=== PATIENT | male | born 1990 | race American Indian/Alaskan Native ===

== ENCOUNTER 2017-06-08 10:17 | Emergency (ER) | payer SELFPAY ==
[2017-06-08 10:52] LABS: Basophils % (Auto) 0.4 % (0.0-1.8); Eosinophils % (Auto) 3.2 % (0.0-4.3); Hematocrit 42.2 % (35.5-45.6); Hemoglobin 13.8 gm/dl (11.8-15.2); Mean Corpuscular HGB Conc 33 % (32-34); Mean Corpuscular Hemoglobin 28 pg (28-32); Mean Corpuscular Volume 86 fl (84-94); Platelet Count 271 K/mm3 (140-440); Red Blood Count 4.93 M/mm3 (3.65-5.03); Red Cell Distribution Width 14.9 % (13.2-15.2); White Blood Count 5.3 K/mm3 (4.5-11.0)
[2017-06-08 11:14] LABS: Anion Gap 18 mmol/L; BUN/Creatinine Ratio 17.77; Blood Urea Nitrogen 16 mg/dL (9-20); Calcium 9.6 mg/dL (8.4-10.2); Carbon Dioxide 25 mmol/L (22-30); Chloride 100.6 mmol/L (98-107); Glucose 98 mg/dL (75-100); Potassium 4.5 mmol/L (3.6-5.0); Sodium 139 mmol/L (137-145)
[2017-06-08 13:12] LABS: Urine Drugs of Abuse Note Disclamer
[2017-06-08 13:31] LABS: Bacteria,Urine 1+ /HPF (Negative); Bilirubin,Urine NEG (Negative); Blood,Urine NEG (Negative); Ketones,Urine TR mg/dL (Negative); Leukocyte Esterase,Urine NEG (Negative); Mucus,Urine 3+ /HPF; Nitrite,Urine NEG (Negative); RBC,Urine < 1.0 /HPF (0.0-6.0); Urobilinogen,Urine < 2.0 mg/dL (<2.0)
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
[2017-06-09] MEDS ORDERED: GEODON IM ONE ×2 (10:32)
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
[2017-06-09] MEDS ORDERED: RisperDAL PO SCH (22:00)
[2017-06-10 00:56] VITALS: BP 119/77
== END 2017-06-10 00:55 ==
LOC: ED 10:17
DX: F22 Delusional disorders (principal); F29 Unspecified psychosis not due to a substance or known physiological condition; F20.9 Schizophrenia, unspecified
CPT/HCPCS: 36415; 80048; 80307; 81001; 85025; 96372; 99285; G0480; J3486; 80320

== ENCOUNTER 2018-03-31 19:26 | Emergency (ER) | payer MEDICAID ==
[2018-03-31 20:08] LABS: Basophils % (Auto) 0.6 % (0.0-1.8); Eosinophils # (Auto) 0.3 K/mm3 (0.0-0.4); Eosinophils % (Auto) 3.8 % (0.0-4.3); Hematocrit 40.3 % (35.5-45.6); Hemoglobin 13.6 gm/dl (11.8-15.2); Lymphocytes # (Auto) 2.7 K/mm3 (1.2-5.4); Lymphocytes % (Auto) 34.4 % (13.4-35.0); Mean Corpuscular HGB Conc 34 % (32-34); Mean Corpuscular Hemoglobin 30 pg (28-32); Mean Corpuscular Volume 90 fl (84-94); Monocytes # (Auto) 0.4 K/mm3 (0.0-0.8); Monocytes % (Auto) 4.7 % (0.0-7.3); Platelet Count 231 K/mm3 (140-440); Red Cell Distribution Width 13.5 % (13.2-15.2)
[2018-03-31 20:20] LABS: Bilirubin,Urine NEG (Negative); Blood,Urine NEG (Negative); Calcium Oxalate Crystals,Urine 1+; Color,Urine Yellow (Yellow); Mucus,Urine 1+ /HPF; Protein,Urine <15 mg/dL mg/dL (Negative); Urobilinogen,Urine < 2.0 mg/dL (<2.0)
[2018-03-31 20:22] LABS: Amphetamine Screen,Urine PRESUMPTIVE NEGATIVE; Benzodiazepines Screen,Urine PRESUMPTIVE NEGATIVE; Cannabinoid Screen,Urine PRESUMPTIVE NEGATIVE; Cocaine Screen,Urine PRESUMPTIVE NEGATIVE; Methadone Screen,Urine PRESUMPTIVE NEGATIVE; Opiate Screen,Urine PRESUMPTIVE NEGATIVE
[2018-03-31 20:35] LABS: BUN/Creatinine Ratio 16; Blood Urea Nitrogen 16 mg/dL (9-20); Calcium 9.5 mg/dL (8.4-10.2); Hemolysis Index 11
--- NOTE | 2018-04-01 07:19 | Emergency Department Report ---
ED Psych HPI - General Chief Complaint: Psych Stated Complaint: MH Time Seen by Provider: 04/01/18 06:18 Source: patient Mode of arrival: Ambulatory - History of Present Illness Initial Comments: Patient says that he is here for his Viagra shot. He gets them once a month from Dr. PETERSEN who is over at [facility]. He also would like a refill for Benadryl to help him sleep at night. Denies SI, HI, AVH. Has been compliant With his home medications. Denies illicit drug use or alcohol. - Related Data Home Medications Medication Instructions Recorded Confirmed Last Taken OLANzapine [ZyPREXA] 15 mg PO QDAY 10/11/13 06/08/17 01/16/14 risperiDONE [Risperdal] 2 mg PO HS 01/17/14 06/08/17 Unknown Previous Rx's Medication Instructions Recorded Last Taken Type diphenhydrAMINE [Benadryl CAP] 25 mg PO Q8HR PRN #10 capsule 04/01/18 Unknown Rx Allergies Allergy/AdvReac Type Severity Reaction Status Date / Time No Known Allergies Allergy Verified 06/08/17 10:30 ED Review of Systems ROS: Stated complaint: MH Other details as noted in HPI Comment: All other systems reviewed and negative ED Past Medical Hx - Past Medical History Hx Hypertension: Yes Hx Psychiatric Treatment: Yes (Sees Dr. Blanco) Additional medical history: Depression, schizophrenia - Surgical History Past Surgical History?: No - Social History Smoking Status: Never Smoker Substance Use Type: None - Medications Home Medications: Home Medications Medication Instructions Recorded Confirmed Last Taken Type OLANzapine [ZyPREXA] 15 mg PO QDAY 10/11/13 06/08/17 01/16/14 History risperiDONE [Risperdal] 2 mg PO HS 01/17/14 06/08/17 Unknown History diphenhydrAMINE [Benadryl CAP] 25 mg PO Q8HR PRN #10 capsule 04/01/18 Unknown Rx ED Physical Exam - General Limitations: No Limitations General appearance: alert, in no apparent distress - Head Head exam: Present: atraumatic, normocephalic - Eye Eye exam: Present: normal appearance - ENT ENT exam: Present: mucous membranes moist - Neck Neck exam: Present: normal inspection - Respiratory Respiratory exam: Present: normal lung sounds bilaterally. Absent: respiratory distress - Cardiovascular Cardiovascular Exam: Present: regular rate, normal rhythm. Absent: systolic murmur, diastolic murmur, rubs, gallop - GI/Abdominal GI/Abdominal exam: Present: soft. Absent: tenderness - Rectal Rectal exam: Present: deferred - Extremities Exam Extremities exam: Present: normal inspection - Back Exam Back exam: Present: normal inspection - Neurological Exam Neurological exam: Present: alert, oriented X3 - Psychiatric Psychiatric exam: Present: normal affect, normal mood - Skin Skin exam: Present: warm, dry, intact, normal color. Absent: rash ED Course Vital Signs 03/31/18 03/31/18 04/01/18 19:27 19:32 03:33 Temperature 98.8 F 98.8 F 97.8 F Pulse Rate 79 74 55 L Respiratory 18 18 18 Rate Blood Pressure 113/72 113/72 Blood Pressure 121/81 [Left] O2 Sat by Pulse 96 97 Oximetry 04/01/18 03:42 Temperature Pulse Rate Respiratory 18 Rate Blood Pressure Blood Pressure [Left] O2 Sat by Pulse 98 Oximetry ED Medical Decision Making - Lab Data Result diagrams: 03/31/18 19:53 03/31/18 19:53 - Medical Decision Making 27-year-old male with past medical history of schizophrenia on olanzapine/ Risperdal and presents for medication refill. Patient says that he would like a prescription for Benadryl to help him sleep and that he wants his monthly injection of Viagra. Patient says that he is on it for his blood pressure. He says that he gets an injection from a Dr. Casiano over at [facility]. His last injection with a month ago. Patient clinically appears to be odd but he is alert and oriented and competent. He is denying any suicidal or homicidal ideation. Patient as well. He does not want to stay for a psychiatric evaluation. He is not meeting emergent psychiatric criteria for evaluation. Patient will be given prescription for Benadryl to use at home. I told the patient that I do not do Viagra injections and that he should follow-up with the doctor that gave it to him before. He was okay with this. Patient has been agreeable while in the ER. I discussed with the nurse and tech to have observed him while he's been in the ER. They said that he has been very agreeable and appears to be alert and oriented. Has not made any violent threats either towards himself or others. They agree that he is competent as well. Patient is cleared for discharge. - Differential Diagnosis psychosis, drug intoxication, alcohol intoxication, schizophrenia Critical care attestation.: If time is entered above; I have spent that time in minutes in the direct care of this critically ill patient, excluding procedure time. ED Disposition Clinical Impression: Schizophrenia Disposition: DC-01 TO HOME OR SELFCARE Is pt being admited?: No Condition: Stable Instructions: Schizophrenia (ED) Additional Instructions: Please follow up with Dr. Casiano and your psychiatrist for further refills of your medications. Prescriptions: diphenhydrAMINE [Benadryl CAP] 25 mg PO Q8HR PRN #10 capsule PRN Reason: Insomnia Referrals: PRIMARY CARE, [Primary Care Provider] - 3-5 Days
[2018-04-01 08:49] VITALS: BP 126/77
== END 2018-04-01 08:50 | disposition home or self-care (01) ==
LOC: ED 19:26
DX: F20.9 Schizophrenia, unspecified (principal); F32.9 Major depressive disorder, single episode, unspecified; I10 Essential (primary) hypertension
CPT/HCPCS: 36415; 80048; 80307; 81001; 85025; 99283; G0480; 80320

== ENCOUNTER 2020-10-07 19:41 | Emergency (ER) | payer MEDICAID ==
[2020-10-07 22:07] LABS: Basophils # (Auto) 0.1 K/mm3 (0.0-0.1); Basophils % (Auto) 0.6 % (0.0-1.8); Eosinophils # (Auto) 0.2 K/mm3 (0.0-0.4); Eosinophils % (Auto) 2.5 % (0.0-4.3); Hematocrit 28.6 % (35.5-45.6); Hemoglobin 9.9 gm/dl (11.8-15.2); Lymphocytes # (Auto) 1.9 K/mm3 (1.2-5.4); Lymphocytes % (Auto) 21.2 % (13.4-35.0); Mean Corpuscular HGB Conc 35 % (32-34); Mean Corpuscular Volume 80 fl (84-94); Monocytes # (Auto) 0.6 K/mm3 (0.0-0.8); Monocytes % (Auto) 6.1 % (0.0-7.3); Platelet Count 408 K/mm3 (140-440); Red Blood Count 3.57 M/mm3 (3.65-5.03); Red Cell Distribution Width 16.8 % (13.2-15.2)
--- NOTE | 2020-10-07 22:31 | Emergency Department Report ---
ED Psych HPI - General Chief Complaint: Psych Stated Complaint: MH Time Seen by Provider: 10/07/20 22:15 Source: patient Mode of arrival: Stretcher Limitations: No Limitations - History of Present Illness Initial Comments: 30-year-old male with a past medical history of schizophrenia, depression, and hypertension presents to the hospital requesting to be restarted on his psychiatric medication. Patient states he needs his monthly Viagra shot however, I think patient needs Invega. He states he has not had this shot since approximately 2017. He states he is also been treated with Zyprexa and Risperdal in the past however cannot tell me when the last time he took either medication. As per medical record review patient was here in 2018 with the same request. He does hear voices with denies suicidal homicidal ideation. No physical complaints reported - Related Data Home Medications Medication Instructions Recorded Confirmed Last Taken OLANzapine [ZyPREXA] 15 mg PO QDAY 10/11/13 06/08/17 01/16/14 risperiDONE [Risperdal] 2 mg PO HS 01/17/14 06/08/17 Unknown Previous Rx's Medication Instructions Recorded Last Taken Type diphenhydrAMINE [Benadryl CAP] 25 mg PO Q8HR PRN #10 capsule 04/01/18 Unknown Rx Allergies Allergy/AdvReac Type Severity Reaction Status Date / Time No Known Allergies Allergy Verified 06/08/17 10:30 ED Review of Systems ROS: Stated complaint: MH Other details as noted in HPI Comment: All other systems reviewed and negative ED Past Medical Hx - Past Medical History Previous Medical History?: Yes Hx Hypertension: Yes Hx Psychiatric Treatment: Yes (Schizophrenia, Depression) Additional medical history: Depression, schizophrenia - Surgical History Past Surgical History?: No - Social History Smoking Status: Never Smoker Substance Use Type: None - Medications Home Medications: Home Medications Medication Instructions Recorded Confirmed Last Taken Type OLANzapine [ZyPREXA] 15 mg PO QDAY 10/11/13 06/08/17 01/16/14 History risperiDONE [Risperdal] 2 mg PO HS 01/17/14 06/08/17 Unknown History diphenhydrAMINE [Benadryl CAP] 25 mg PO Q8HR PRN #10 capsule 04/01/18 Unknown Rx ED Physical Exam - General Limitations: No Limitations - Other Other exam information: General: No acute distress Head: Atraumatic Eyes: normal appearance ENT: Moist mucous membranes Neck: Normal appearance, no midline tenderness Chest: Clear to auscultation bilaterally CV: Regular rate and rhythm Abdomen: Soft, normal bowel sounds, nontender, nondistended, no rebound or guarding Back: Normal inspection Extremity: Normal inspection, full range of motion Neuro: Alert O x 3, no facial asymmetry, speech clear, no gross motor sensory deficit Psych: Appropriate behavior, low volume speech Skin: No rash ED Course Vital Signs 10/07/20 21:48 Temperature 98.4 F Pulse Rate 98 H Respiratory 19 Rate Blood Pressure 103/67 O2 Sat by Pulse 96 Oximetry ED Medical Decision Making - Lab Data Result diagrams: 10/07/20 21:59 10/07/20 21:59 Lab Results 10/07/20 10/07/20 10/07/20 Range/Units 21:59 21:59 21:59 WBC (4.5-11.0) K/mm3 RBC (3.65-5.03) M/mm3 Hgb (11.8-15.2) gm/dl Hct (35.5-45.6) % MCV (84-94) fl MCH (28-32) pg MCHC (32-34) % RDW (13.2-15.2) % Plt Count (140-440) K/mm3 Lymph % (Auto) (13.4-35.0) % Sevier % (Auto) (0.0-7.3) % Eos % (Auto) (0.0-4.3) % Baso % (Auto) (0.0-1.8) % Lymph # (Auto) (1.2-5.4) K/mm3 Sevier # (Auto) (0.0-0.8) K/mm3 Eos # (Auto) (0.0-0.4) K/mm3 Baso # (Auto) (0.0-0.1) K/mm3 Seg Neutrophils % (40.0-70.0) % Seg Neutrophils # (1.8-7.7) K/mm3 Sodium 134 L (137-145) mmol/L Potassium 4.3 (3.6-5.0) mmol/L Chloride 98.4 (98-107) mmol/L Carbon Dioxide 22 (22-30) mmol/L Anion Gap 18 mmol/L BUN 10 (9-20) mg/dL Creatinine 0.8 (0.8-1.3) mg/dL Estimated GFR > 60 ml/min BUN/Creatinine Ratio 13 % Glucose 87 (75-100) mg/dL Calcium 9.3 (8.4-10.2) mg/dL Urine Color (Yellow) Urine Turbidity (Clear) Urine pH (5.0-7.0) Ur Specific Woodland (1.003-1.030) Urine Protein (Negative) mg/dL Urine Glucose (UA) (Negative) mg/dL Urine Ketones (Negative) mg/dL Urine Blood (Negative) Urine Nitrite (Negative) Urine Bilirubin (Negative) Urine Urobilinogen (<2.0) mg/dL Ur Leukocyte Esterase (Negative) Urine WBC (Auto) (0.0-6.0) /HPF Urine RBC (Auto) (0.0-6.0) /HPF Calcium Oxalate Crystal Urine Mucus /HPF Salicylates < 0.3 L (2.8-20.0) mg/dL Urine Opiates Screen Urine Methadone Screen Acetaminophen 5.0 L (10.0-30.0) ug/mL Ur Barbiturates Screen Ur Phencyclidine Scrn Ur Amphetamines Screen U Benzodiazepines Scrn Urine Cocaine Screen U Marijuana (THC) Screen Drugs of Abuse Note Plasma/Serum Alcohol (0-0.07) % 10/07/20 10/07/20 10/07/20 Range/Units 21:59 21:59 22:13 WBC 9.0 (4.5-11.0) K/mm3 RBC 3.57 L (3.65-5.03) M/mm3 Hgb 9.9 L (11.8-15.2) gm/dl Hct 28.6 L (35.5-45.6) % MCV 80 L (84-94) fl MCH 28 (28-32) pg MCHC 35 H (32-34) % RDW 16.8 H (13.2-15.2) % Plt Count 408 (140-440) K/mm3 Lymph % (Auto) 21.2 (13.4-35.0) % Sevier % (Auto) 6.1 (0.0-7.3) % Eos % (Auto) 2.5 (0.0-4.3) % Baso % (Auto) 0.6 (0.0-1.8) % Lymph # (Auto) 1.9 (1.2-5.4) K/mm3 Sevier # (Auto) 0.6 (0.0-0.8) K/mm3 Eos # (Auto) 0.2 (0.0-0.4) K/mm3 Baso # (Auto) 0.1 (0.0-0.1) K/mm3 Seg Neutrophils % 69.6 (40.0-70.0) % Seg Neutrophils # 6.3 (1.8-7.7) K/mm3 Sodium (137-145) mmol/L Potassium (3.6-5.0) mmol/L Chloride (98-107) mmol/L Carbon Dioxide (22-30) mmol/L Anion Gap mmol/L BUN (9-20) mg/dL Creatinine (0.8-1.3) mg/dL Estimated GFR ml/min BUN/Creatinine Ratio % Glucose (75-100) mg/dL Calcium (8.4-10.2) mg/dL Urine Color Kelly (Yellow) Urine Turbidity Clear (Clear) Urine pH 5.0 (5.0-7.0) Ur Specific Woodland 1.030 (1.003-1.030) Urine Protein 30 mg/dl (Negative) mg/dL Urine Glucose (UA) Neg (Negative) mg/dL Urine Ketones Neg (Negative) mg/dL Urine Blood Neg (Negative) Urine Nitrite Neg (Negative) Urine Bilirubin Neg (Negative) Urine Urobilinogen 4.0 (<2.0) mg/dL Ur Leukocyte Esterase Neg (Negative) Urine WBC (Auto) 2.0 (0.0-6.0) /HPF Urine RBC (Auto) 2.0 (0.0-6.0) /HPF Calcium Oxalate Crystal 1+ Urine Mucus 3+ /HPF Salicylates (2.8-20.0) mg/dL Urine Opiates Screen Urine Methadone Screen Acetaminophen (10.0-30.0) ug/mL Ur Barbiturates Screen Ur Phencyclidine Scrn Ur Amphetamines Screen U Benzodiazepines Scrn Urine Cocaine Screen U Marijuana (THC) Screen Drugs of Abuse Note Plasma/Serum Alcohol < 0.01 (0-0.07) % 10/07/20 Range/Units 22:13 WBC (4.5-11.0) K/mm3 RBC (3.65-5.03) M/mm3 Hgb (11.8-15.2) gm/dl Hct (35.5-45.6) % MCV (84-94) fl MCH (28-32) pg MCHC (32-34) % RDW (13.2-15.2) % Plt Count (140-440) K/mm3 Lymph % (Auto) (13.4-35.0) % Sevier % (Auto) (0.0-7.3) % Eos % (Auto) (0.0-4.3) % Baso % (Auto) (0.0-1.8) % Lymph # (Auto) (1.2-5.4) K/mm3 Sevier # (Auto) (0.0-0.8) K/mm3 Eos # (Auto) (0.0-0.4) K/mm3 Baso # (Auto) (0.0-0.1) K/mm3 Seg Neutrophils % (40.0-70.0) % Seg Neutrophils # (1.8-7.7) K/mm3 Sodium (137-145) mmol/L Potassium (3.6-5.0) mmol/L Chloride (98-107) mmol/L Carbon Dioxide (22-30) mmol/L Anion Gap mmol/L BUN (9-20) mg/dL Creatinine (0.8-1.3) mg/dL Estimated GFR ml/min BUN/Creatinine Ratio % Glucose (75-100) mg/dL Calcium (8.4-10.2) mg/dL Urine Color (Yellow) Urine Turbidity (Clear) Urine pH (5.0-7.0) Ur Specific Woodland (1.003-1.030) Urine Protein (Negative) mg/dL Urine Glucose (UA) (Negative) mg/dL Urine Ketones (Negative) mg/dL Urine Blood (Negative) Urine Nitrite (Negative) Urine Bilirubin (Negative) Urine Urobilinogen (<2.0) mg/dL Ur Leukocyte Esterase (Negative) Urine WBC (Auto) (0.0-6.0) /HPF Urine RBC (Auto) (0.0-6.0) /HPF Calcium Oxalate Crystal Urine Mucus /HPF Salicylates (2.8-20.0) mg/dL Urine Opiates Screen Negative Urine Methadone Screen Negative Acetaminophen (10.0-30.0) ug/mL Ur Barbiturates Screen Negative Ur Phencyclidine Scrn Negative Ur Amphetamines Screen Negative U Benzodiazepines Scrn Negative Urine Cocaine Screen Negative U Marijuana (THC) Screen Negative Drugs of Abuse Note Disclamer Plasma/Serum Alcohol (0-0.07) % - Medical Decision Making 30-year-old male with schizophrenia and depression presents to the hospital requesting to be reinitiated on his psychiatric medication. Patient is a poor historian and is unclear when he last had his medication and exactly what medication and doses he is prescribed. Patient was seen by mental health who agrees that patient does not meet criteria for inpatient psychiatric treatment at this time will be instructed to follow-up as outpatient to be restarted on his psychiatric medication. Upon discharge nurse informed me that patient has nowhere to go. Apparently he was kicked out of his assisted for refusing to wear a facemask. Patient will be held in a.m. for case management consult to determine alternative placement. Critical Care Time: No Critical care attestation.: If time is entered above; I have spent that time in minutes in the direct care of this critically ill patient, excluding procedure time. ED Disposition Clinical Impression: Schizophrenia, Noncompliance with medication regimen Disposition: DC-01 TO HOME OR SELFCARE Is pt being admited?: No Does the pt Need Aspirin: No Condition: Stable Instructions: Schizophrenia Additional Instructions: Follow-up with outpatient resources provided to be started on a psychiatric medication. Return if symptoms worsen as indicated by your discharge instructions Referrals: [facility] [Outside] - 2-3 Days Time of Disposition: 23:56
[2020-10-07 22:34] LABS: Bilirubin,Urine NEG (Negative); Blood,Urine NEG (Negative); Calcium Oxalate Crystals,Urine 1+; Color,Urine Amber (Yellow); Mucus,Urine 3+ /HPF
[2020-10-07 22:39] LABS: Amphetamine Screen,Urine Negative; Benzodiazepines Screen,Urine Negative; Cannabinoid Screen,Urine Negative; Cocaine Screen,Urine Negative; Methadone Screen,Urine Negative; Opiate Screen,Urine Negative
[2020-10-07 23:01] LABS: BUN/Creatinine Ratio 13; Blood Urea Nitrogen 10 mg/dL (9-20); Calcium 9.3 mg/dL (8.4-10.2); Hemolysis Index 14
--- NOTE | 2020-10-08 09:50 | Consultation ---
History of Present Illness - Reason for Consult Consult date: 10/08/20 Reason for consult: MHE Requesting physician: SURESH BROOKS - History of Present Psychiatric Illness Per ED Provider: 30-year-old male with a past medical history of schizophrenia, depression, and hypertension presents to the hospital requesting to be restarted on his psychiatric medication. Patient states he needs his monthly Viagra shot however, I think patient needs Invega. He states he has not had this shot since approximately 2017. He states he is also been treated with Zyprexa and Risperdal in the past however cannot tell me when the last time he took either medication. As per medical record review patient was here in 2018 with the same request. He does hear voices with denies suicidal homicidal ideation. No physical complaints reported Per MHA: Pt is a 30 yo AA male presenting to ED for MHE, as pt reported AH, medical Clearance. During ax, pt presented with cooperative behaviors, calm mood and congruent affect. Pt states "I am here go get my blook done so I can take the Viagra shot again". Pt states " I have not had my Invega shot in months, they took me off Depakote". Pt reports AH-denies command hallucinations. Pt states the voices are talking and he can't tell what they are saying. Pt denies SI/HI. Pt denies visual hallucinations. Pt unable to idenitfy triggers. Pt denies hx of attempts. Pt denies hx of Paranoid Schizophrenia. Pt reports noncompliance with medications. Pt denies drug or alcohol use or abuse. PSYCH HPI Patient is a 30-year-old, currently unemployed on SSI, single -[place] male who past psychiatric history of schizophrenia and unspecified intellectual disability due to TBI who presented to the ED with initial complaint of being restarted on this medication but told me he was referred to come here by Dr. Castillo for blood work. Patient reported he sees outpatient psychiatry Dr. Castillo, whom I requested that patient needs to get some blood work done outpatient purposes while patient presented to the ED instead. Patient denies any suicidal thoughts that he wants to stay alive and no thoughts of killing self or hurting self or any other person. Patient responses slow, due to underlying cognitive disorder. Patient does not appear to be in any psychotic episode, or as danger to himself at this moment. PAST PSYCHIATRIC HISTORY Diagnoses: Schizophrenia Suicide attempts or Self-harm behavior: None reported Prior psychiatric hospitalizations: Yes Substance Abuse history: None reported Previous psychiatric medications tried: Monthly Haldol Outpatient treatment: Yes PAST MEDICAL HISTORY: TBI Family Psychiatric History: None reported or documented SOCIAL HISTORY Marital Status: Single Living Arrangements: prison Employment Status: On SSI Access to guns/weapons: None reported Education: High school unspecified grade History of Abuse: None reported Legal History: None reported REVIEW OF SYSTEMS Constitutional: Negative for weight loss ENT: Negative for stridor Respiratory: Negative for cough or hemoptysis All other systems reviewed and are negative MENTAL STATUS EXAMINATION General Appearance and Behavior: Age appropriate, good hygiene, wearing appropri ate clothes, good eye contact, cooperative polite with questioning. Cooperation: Participating/engaged Psychomotor Behavior: unremarkable and within normal limits Mood: Good Affect and affective range: congruent with mood Thought Process: Circumstitial Thought Content: No hallucinations or paranoia Speech: Normal volume, slow rate and rhythm, Intellectual Functioning: Average Suicidal Ideation: Denies SI Homicidal Ideation: Denies HI Impulse Control: Unimpaired Insight and Judgment: Limited in the insight and judgment, Memory: Impaired memory Attention: Normal, Orientation: Alert, oriented, Diagnoses: Assessment and Plan - Psychiatric problem (1) Intellectual delay Current Visit: Yes Status: Acute (2) Hx of schizophrenia Current Visit: Yes Status: Acute Treatment Plan Patient responses slow, due to underlying cognitive disorder. Patient does not appear to be in any psychotic episode, or as danger to himself at this moment. MEDICATIONS: Risks, benefits and alternatives of medications discussed with the patient, questions answered and consent obtained from patient. PSYCHOTHERAPY: Supportive psychotherapy provided MEDICAL: Per primary team DELIRIUM PRECAUTIONS: Please re-orient patient frequently, keep lights on during the day, and minimize benzodiazepines and opiates as these medications could worsen patient's confusion. SENIOR PROJECT MANAGER ENGINEERING: DISPOSITION: Do Not Recommend acute inpatient psychiatric hospitalization at this time. Patient to follow-up with his outpatient psych LEGAL STATUS: Voluntary FOLLOW-UP: Will sign off. case discussed with Dr. La Thank you for the consult. Please contact with any questions and/or concerns. Medications and Allergies Allergies Allergy/AdvReac Type Severity Reaction Status Date / Time No Known Allergies Allergy Verified 06/08/17 10:30 Home Medications Medication Instructions Recorded Confirmed Last Taken Type OLANzapine [ZyPREXA] 15 mg PO QDAY 10/11/13 06/08/17 01/16/14 History risperiDONE [Risperdal] 2 mg PO HS 01/17/14 06/08/17 Unknown History diphenhydrAMINE [Benadryl CAP] 25 mg PO Q8HR PRN #10 capsule 04/01/18 Unknown Rx Mental Status Exam - Vital signs Last Vital Signs Temp 97.6 F 10/08/20 08:03 Pulse 76 10/08/20 08:03 Resp 16 10/08/20 08:03 BP 99/63 10/08/20 08:03 Pulse Ox 97 10/08/20 08:03 Results Result Diagrams: 10/07/20 21:59 10/07/20 21:59 Abnormal lab results 10/07/20 10/07/20 10/07/20 Range/Units 21:59 21:59 21:59 RBC (3.65-5.03) M/mm3 Hgb (11.8-15.2) gm/dl Hct (35.5-45.6) % MCV (84-94) fl MCHC (32-34) % RDW (13.2-15.2) % Sodium 134 L (137-145) mmol/L Salicylates < 0.3 L (2.8-20.0) mg/dL Acetaminophen 5.0 L (10.0-30.0) ug/mL 10/07/20 Range/Units 21:59 RBC 3.57 L (3.65-5.03) M/mm3 Hgb 9.9 L (11.8-15.2) gm/dl Hct 28.6 L (35.5-45.6) % MCV 80 L (84-94) fl MCHC 35 H (32-34) % RDW 16.8 H (13.2-15.2) % Sodium (137-145) mmol/L Salicylates (2.8-20.0) mg/dL Acetaminophen (10.0-30.0) ug/mL All other labs normal. Assessment and Plan - Psychiatric problem (1) Intellectual delay Current Visit: Yes Status: Acute (2) Hx of schizophrenia Current Visit: Yes Status: Acute
[2020-10-08 16:23] VITALS: BP 109/75
== END 2020-10-08 23:00 | disposition home or self-care (01) ==
LOC: ED 19:41
DX: F25.0 Schizoaffective disorder, bipolar type (principal); Z91.14 Patient's other noncompliance with medication regimen; I10 Essential (primary) hypertension; Z79.899 Other long term (current) drug therapy
CPT/HCPCS: 36415; 80048; 80307; 80320; 81001; 85025; G0480

== ENCOUNTER 2021-03-19 23:46 | Emergency (ER) | payer MEDICAID ==
--- NOTE | 2021-03-20 05:02 | Event Note ---
ED Screening Note Date of service: 03/20/21 Time: 04:59 ED Screening Note: Patient is a 30 yo AA male with a h/o Paranoid schizophrenia, bipolar d/o, anxiety and depression who presents to the ED with c/o persistent visual and auditory hallucinations for the last 1 month, worse in the last 1 week. Patient states that he has not been on his mental health medications for over 6 months and would like to be evaluated and started on his medications. Patient denies dizziness, fever, chills, nausea, vomiting, chest pain, dyspnea, back pain, vision changes, seizures, suicidal or homicidal ideations This initial assessment/diagnostic orders/clinical plan/treatment(s) is/are subject to change based on patients health status, clinical progression and re- assessment by fellow clinical providers in the ED. Further treatment and workup at subsequent clinical providers discretion. Patient/guardian urged not to elope from the ED as their condition may be serious if not clinically assessed and managed. Initial orders include: CBC, CMP, UA, UDS, TSH, acetaminophen level, blood alcohol, salicylate level
[2021-03-20 05:33] LABS: Basophils % (Auto) 0.4 % (0.0-1.8); Eosinophils # (Auto) 0.6 K/mm3 (0.0-0.4); Eosinophils % (Auto) 7.6 % (0.0-4.3); Hematocrit 33.6 % (35.5-45.6); Hemoglobin 11.1 gm/dl (11.8-15.2); Lymphocytes # (Auto) 2.3 K/mm3 (1.2-5.4); Lymphocytes % (Auto) 28.9 % (13.4-35.0); Mean Corpuscular HGB Conc 33 % (32-34); Mean Corpuscular Volume 79 fl (84-94); Monocytes # (Auto) 0.6 K/mm3 (0.0-0.8); Monocytes % (Auto) 7.2 % (0.0-7.3); Platelet Count 323 K/mm3 (140-440); Red Blood Count 4.27 M/mm3 (3.65-5.03)
[2021-03-20 05:39] LABS: Alanine Aminotransferase 6 units/L (7-56); Albumin 3.3 g/dL (3.9-5); Blood Urea Nitrogen 14 mg/dL (9-20); Calcium 8.9 mg/dL (8.4-10.2); Hemolysis Index 0
[2021-03-20 05:40] LABS: BUN/Creatinine Ratio 20
--- NOTE | 2021-03-20 08:10 | Emergency Department Report ---
HPI - General Chief Complaint: Medical Clearance Time Seen by Provider: 03/20/21 07:58 - HPI HPI: Room 24 The patient is a 30-year-old male present with a chief complaint of "my schizophrenia got worse." The patient comes emergency department stating he needs to "catch up" on his psychiatric medications. Patient states he has been intermittently compliant with his medications. Patient states he been feeling too depressed and having auditory hallucinations. When asked with his auditory hallucinations consist of the patient states "hearing my old past about my childhood." Patient denies suicidal or homicidal ideation. ED Past Medical Hx - Past Medical History Previous Medical History?: Yes Hx Hypertension: Yes Hx Psychiatric Treatment: Yes (Schizophrenia, Depression) Additional medical history: Depression, schizophrenia - Surgical History Past Surgical History?: No - Family History Family history: no significant - Social History Smoking Status: Never Smoker Substance Use Type: None - Medications Home Medications: Home Medications Medication Instructions Recorded Confirmed Last Taken Type OLANzapine [ZyPREXA] 15 mg PO QDAY 10/11/13 06/08/17 01/16/14 History risperiDONE [Risperdal] 2 mg PO HS 01/17/14 06/08/17 Unknown History diphenhydrAMINE [Benadryl CAP] 25 mg PO Q8HR PRN #10 capsule 04/01/18 Unknown Rx Silver Sulfadiazine [Silvadene] 50 gm TP BID #1 cream..g. 03/20/21 Unknown Rx ED Review of Systems ROS: Stated complaint: SKIN LESION;PAIN Other details as noted in HPI Constitutional: no symptoms reported Eyes: denies: eye pain ENT: denies: throat pain Respiratory: no symptoms reported Cardiovascular: denies: chest pain Endocrine: no symptoms reported Gastrointestinal: denies: abdominal pain Genitourinary: denies: dysuria Musculoskeletal: denies: back pain Neurological: denies: headache Psychiatric: depression, auditory hallucinations. denies: homicidal thoughts, suicidal thoughts Physical Exam - Physical Exam Vital Signs: Vital Signs 03/20/21 03/20/21 00:42 07:24 Temperature 99.7 F H 98.3 F Pulse Rate 99 H 77 Respiratory 18 20 Rate Blood Pressure 93/60 Blood Pressure 97/65 [Left] Blood Pressure 97/65 [Right] O2 Sat by Pulse 100 98 Oximetry Physical Exam: GENERAL: The patient is well-developed well-nourished male lying on stretcher not appearing to be in acute distress. [] HEENT: Normocephalic. Atraumatic. Extraocular motions are intact. Patient has moist mucous membranes. NECK: Supple. Trachea midline CHEST/LUNGS: Clear to auscultation. There is no respiratory distress noted. HEART/CARDIOVASCULAR: Regular. There is no tachycardia. There is no gallop rub or murmur. ABDOMEN: Abdomen is soft, nontender. Patient has normal bowel sounds. There is no abdominal distention. SKIN: There is a chronic appearing wound in the right axilla with evidence of dried secretions present. Patient states it has been present for 2 years. There is no diaphoresis. NEURO: The patient is awake, alert, and oriented. The patient is cooperative. The patient has no focal neurologic deficits. The patient has normal speech MUSCULOSKELETAL: There is no evidence of acute injury. Patient states he does not have full mobility of his right shoulder secondary to his right axillary wound for 2 years ED Course Vital Signs 03/20/21 03/20/21 00:42 07:24 Temperature 99.7 F H 98.3 F Pulse Rate 99 H 77 Respiratory 18 20 Rate Blood Pressure 93/60 Blood Pressure 97/65 [Left] Blood Pressure 97/65 [Right] O2 Sat by Pulse 100 98 Oximetry ED Medical Decision Making - Lab Data Result diagrams: 03/20/21 04:59 03/20/21 04:59 Laboratory Tests 03/20/21 03/20/21 03/20/21 04:59 04:59 04:59 WBC 8.0 RBC 4.27 Hgb 11.1 L Hct 33.6 L MCV 79 L MCH 26 L MCHC 33 RDW 21.0 H Plt Count 323 Lymph % (Auto) 28.9 [place] % (Auto) 7.2 Eos % (Auto) 7.6 H Baso % (Auto) 0.4 Lymph # (Auto) 2.3 [place] # (Auto) 0.6 Eos # (Auto) 0.6 H Baso # (Auto) 0.0 Seg Neutrophils % 55.9 Seg Neutrophils # 4.5 Sodium 138 Potassium 3.9 Chloride 100.0 Carbon Dioxide 25 Anion Gap 17 BUN 14 Creatinine 0.7 L Estimated GFR > 60 BUN/Creatinine Ratio 20 Glucose 75 Calcium 8.9 Total Bilirubin 0.30 AST 11 ALT 6 L Alkaline Phosphatase 86 Total Protein 8.4 H Albumin 3.3 L Albumin/Globulin Ratio 0.6 TSH 4.530 H Free T4 Urine Color Urine Turbidity Urine pH Ur Specific [place] Urine Protein Urine Glucose (UA) Urine Ketones Urine Blood Urine Nitrite Urine Bilirubin Urine Ictotest Urine Urobilinogen Ur Leukocyte Esterase Urine WBC (Auto) Urine RBC (Auto) Urine Mucus Salicylates Urine Opiates Screen Urine Methadone Screen Acetaminophen Ur Barbiturates Screen Ur Phencyclidine Scrn Ur Amphetamines Screen U Benzodiazepines Scrn Urine Cocaine Screen U Marijuana (THC) Screen Drugs of Abuse Note Plasma/Serum Alcohol 03/20/21 03/20/21 03/20/21 04:59 04:59 04:59 WBC RBC Hgb Hct MCV MCH MCHC RDW Plt Count Lymph % (Auto) [place] % (Auto) Eos % (Auto) Baso % (Auto) Lymph # (Auto) [place] # (Auto) Eos # (Auto) Baso # (Auto) Seg Neutrophils % Seg Neutrophils # Sodium Potassium Chloride Carbon Dioxide Anion Gap BUN Creatinine Estimated GFR BUN/Creatinine Ratio Glucose Calcium Total Bilirubin AST ALT Alkaline Phosphatase Total Protein Albumin Albumin/Globulin Ratio TSH Free T4 Urine Color Urine Turbidity Urine pH Ur Specific [place] Urine Protein Urine Glucose (UA) Urine Ketones Urine Blood Urine Nitrite Urine Bilirubin Urine Ictotest Urine Urobilinogen Ur Leukocyte Esterase Urine WBC (Auto) Urine RBC (Auto) Urine Mucus Salicylates < 0.3 L Urine Opiates Screen Urine Methadone Screen Acetaminophen 5.0 L Ur Barbiturates Screen Ur Phencyclidine Scrn Ur Amphetamines Screen U Benzodiazepines Scrn Urine Cocaine Screen U Marijuana (THC) Screen Drugs of Abuse Note Plasma/Serum Alcohol < 0.01 03/20/21 03/20/21 03/20/21 04:59 10:22 10:22 WBC RBC Hgb Hct MCV MCH MCHC RDW Plt Count Lymph % (Auto) [place] % (Auto) Eos % (Auto) Baso % (Auto) Lymph # (Auto) [place] # (Auto) Eos # (Auto) Baso # (Auto) Seg Neutrophils % Seg Neutrophils # Sodium Potassium Chloride Carbon Dioxide Anion Gap BUN Creatinine Estimated GFR BUN/Creatinine Ratio Glucose Calcium Total Bilirubin AST ALT Alkaline Phosphatase Total Protein Albumin Albumin/Globulin Ratio TSH Free T4 1.19 Urine Color [place] Urine Turbidity Clear Urine pH 5.0 Ur Specific [place] 1.031 H Urine Protein 30 mg/dl Urine Glucose (UA) Neg Urine Ketones 20 Urine Blood Neg Urine Nitrite Neg Urine Bilirubin Sm Urine Ictotest Negative Urine Urobilinogen 4.0 Ur Leukocyte Esterase Neg Urine WBC (Auto) 5.0 Urine RBC (Auto) 1.0 Urine Mucus 3+ Salicylates Urine Opiates Screen Negative Urine Methadone Screen Negative Acetaminophen Ur Barbiturates Screen Negative Ur Phencyclidine Scrn Negative Ur Amphetamines Screen Negative U Benzodiazepines Scrn Negative Urine Cocaine Screen Negative U Marijuana (THC) Screen Negative Drugs of Abuse Note Disclamer Plasma/Serum Alcohol - Differential Diagnosis Schizophrenia Critical care attestation.: If time is entered above; I have spent that time in minutes in the direct care of this critically ill patient, excluding procedure time. ED Disposition Clinical Impression: Hx of schizophrenia, Chronic wound of extremity Disposition: TO HOME OR SELFCARE Is pt being admited?: No Does the pt Need Aspirin: No Condition: Stable Instructions: Schizophrenia, Wound Care, Adult Additional Instructions: Return to the emergency department should you develop worsening symptoms, inability to tolerate food or liquids, high fever or any other concerns Prescriptions: Silver Sulfadiazine [Silvadene] 50 gm TP BID #1 cream..g. Referrals: PRIMARY CARE, [Primary Care Provider] - 3-5 Days [facility] [Outside] - 3-[address] [facility] [Outside] - 3-5 Days Time of Disposition: 15:08
[2021-03-20] MEDS ORDERED: SODIUM CHLORIDE 0.9% 1000 ML 1,000 ML IV ONE (08:11)
[2021-03-20 09:32] VITALS: BP 103/63
[2021-03-20 11:00] LABS: Bilirubin,Urine SM (Negative); Blood,Urine NEG (Negative); Color,Urine Amber (Yellow); Mucus,Urine 3+ /HPF
[2021-03-20 11:28] LABS: Amphetamine Screen,Urine Negative; Benzodiazepines Screen,Urine Negative; Cannabinoid Screen,Urine Negative; Cocaine Screen,Urine Negative; Methadone Screen,Urine Negative; Opiate Screen,Urine Negative
[2021-03-20 11:57] LABS: Ictotest,Urine Negative (Negative)
== END 2021-03-21 04:05 | disposition home or self-care (01) ==
LOC: ED 23:46
DX: T81.89XA Other complications of procedures, not elsewhere classified, initial encounter (principal); F25.1 Schizoaffective disorder, depressive type; I10 Essential (primary) hypertension; Z79.899 Other long term (current) drug therapy; Y92.89 Other specified places as the place of occurrence of the external cause
CPT/HCPCS: 96360; 99284; J7030; 36415; 80053; 80307; 80320; 81001; 84439; 84443; 85025; G0480

== ENCOUNTER 2021-05-15 02:11 | Emergency (ER) | payer MEDICAID ==
[2021-05-15 04:20] LABS: Hematocrit 35.4 % (35.5-45.6); Hemoglobin 11.7 gm/dl (11.8-15.2); Mean Corpuscular HGB Conc 33 % (32-34); Mean Corpuscular Volume 78 fl (84-94); Red Blood Count 4.52 M/mm3 (3.65-5.03); Red Cell Distribution Width 18.4 % (13.2-15.2)
[2021-05-15 05:13] LABS: Basophils # (Auto) 0.1 K/mm3 (0.0-0.1); Basophils % (Auto) 0.6 % (0.0-1.8); Eosinophils # (Auto) 0.4 K/mm3 (0.0-0.4); Eosinophils % (Auto) 4.3 % (0.0-4.3); Lymphocytes # (Auto) 3.1 K/mm3 (1.2-5.4); Lymphocytes % (Auto) 31.1 % (13.4-35.0); Monocytes # (Auto) 0.6 K/mm3 (0.0-0.8); Monocytes % (Auto) 6.2 % (0.0-7.3)
[2021-05-15 05:16] LABS: Platelet Count 396 K/mm3 (140-440)
[2021-05-15 05:51] LABS: Blood Urea Nitrogen 13 mg/dL (9-20); Calcium 9.7 mg/dL (8.4-10.2); Hemolysis Index 33
[2021-05-15 06:15] LABS: Bacteria,Urine 1+ /HPF (Negative); Bilirubin,Urine SM (Negative); Blood,Urine NEG (Negative); Color,Urine Amber (Yellow); Mucus,Urine 3+ /HPF
[2021-05-15 06:17] LABS: Amphetamine Screen,Urine PRESUMPTIVE NEGATIVE; Benzodiazepines Screen,Urine PRESUMPTIVE NEGATIVE; Cannabinoid Screen,Urine PRESUMPTIVE NEGATIVE; Cocaine Screen,Urine PRESUMPTIVE NEGATIVE; Methadone Screen,Urine PRESUMPTIVE NEGATIVE; Opiate Screen,Urine PRESUMPTIVE NEGATIVE
[2021-05-15 06:29] LABS: Ictotest,Urine Negative (Negative)
[2021-05-15 06:30] LABS: BUN/Creatinine Ratio 19
--- NOTE | 2021-05-15 07:38 | Emergency Department Report ---
ED Psych HPI - General Chief Complaint: Psych Stated Complaint: MH Time Seen by Provider: 05/15/21 03:50 Source: patient, EMS Mode of arrival: Ambulatory - History of Present Illness Initial Comments: Chief complaint: "I came here for mental health eval. My people tell me to com eEmeli" HPI: This is a 31-year-old male with history of intellectual delay, depression, schizophrenia who presents with request for mental health evaluation. He gives limited history. However he denies suicidal ideation, homicidal ideation and auditory hallucinations. He told triage nurse that he had airplane parts inside of them. Patient presented via EMS. He denies any medical complaints. MD Complaint: other (Delusional thought pattern, patient requested mental health evaluation) Associated Psychiatric Symptoms: delusions History of same: Yes Quality: constant Improves With: none Worsens With: none Context: not taking psychiatric Associated Symptoms: denies other symptoms Treatments Prior to Arrival: none - Related Data Home Medications Medication Instructions Recorded Confirmed Last Taken OLANzapine [ZyPREXA] 15 mg PO QDAY 10/11/13 06/08/17 01/16/14 risperiDONE [Risperdal] 2 mg PO HS 01/17/14 06/08/17 Unknown Previous Rx's Medication Instructions Recorded Last Taken Type diphenhydrAMINE [Benadryl CAP] 25 mg PO Q8HR PRN #10 capsule 04/01/18 Unknown Rx Silver Sulfadiazine [Silvadene] 50 gm TP BID #1 cream..g. 03/20/21 Unknown Rx Allergies Allergy/AdvReac Type Severity Reaction Status Date / Time No Known Allergies Allergy Verified 05/15/21 09:41 ED Review of Systems ROS: Stated complaint: MH Other details as noted in HPI Comment: All other systems reviewed and negative Constitutional: denies: fever, malaise Respiratory: denies: cough, shortness of breath Cardiovascular: denies: chest pain Gastrointestinal: denies: abdominal pain, nausea, vomiting ED Past Medical Hx - Past Medical History Previous Medical History?: Yes Hx Hypertension: Yes Hx Psychiatric Treatment: Yes (Schizophrenia, Depression) Additional medical history: Depression, schizophrenia - Surgical History Past Surgical History?: No - Family History Family history: hypertension - Social History Smoking Status: Current Every Day Smoker Substance Use Type: Alcohol, Marijuana - Medications Home Medications: Home Medications Medication Instructions Recorded Confirmed Last Taken Type OLANzapine [ZyPREXA] 15 mg PO QDAY 10/11/13 06/08/17 01/16/14 History risperiDONE [Risperdal] 2 mg PO HS 01/17/14 06/08/17 Unknown History diphenhydrAMINE [Benadryl CAP] 25 mg PO Q8HR PRN #10 capsule 04/01/18 Unknown Rx Silver Sulfadiazine [Silvadene] 50 gm TP BID #1 cream..g. 03/20/21 Unknown Rx ED Physical Exam - General Limitations: No Limitations General appearance: alert, in no apparent distress - Head Head exam: Present: atraumatic, normocephalic - Eye Eye exam: Absent: scleral icterus, conjunctival injection - ENT ENT exam: Present: mucous membranes moist - Neck Neck exam: Present: normal inspection, full ROM - Respiratory Respiratory exam: Present: normal lung sounds bilaterally. Absent: respiratory distress, wheezes, rales, rhonchi - Cardiovascular Cardiovascular Exam: Present: regular rate, normal rhythm, normal heart sounds. Absent: systolic murmur, diastolic murmur, rubs, gallop - GI/Abdominal GI/Abdominal exam: Present: soft, normal bowel sounds. Absent: distended, tenderness, guarding - Rectal Rectal exam: Present: deferred - Extremities Exam Extremities exam: Present: normal inspection - Back Exam Back exam: Present: normal inspection - Neurological Exam Neurological exam: Present: alert, oriented X3 - Psychiatric Psychiatric exam: Present: depressed, flat affect - Skin Skin exam: Present: warm, dry, intact, normal color. Absent: rash ED Course Vital Signs 05/15/21 05/15/21 05/15/21 03:36 08:00 19:44 Temperature 98.2 F 98 F 97.5 F L Pulse Rate 64 62 69 Respiratory 18 20 18 Rate Blood Pressure 91/56 109/67 110/70 [Left] O2 Sat by Pulse 100 100 100 Oximetry 05/16/21 05/16/21 01:20 11:22 Temperature 97.8 F 98.1 F Pulse Rate 65 74 Respiratory 16 16 Rate Blood Pressure 116/68 86/47 [Left] O2 Sat by Pulse 100 100 Oximetry ED Medical Decision Making - Lab Data Result diagrams: 05/15/21 03:56 05/15/21 03:56 Laboratory Results - last 24 hr 05/15/21 05/15/21 05/15/21 03:43 03:43 03:56 WBC RBC Hgb Hct MCV MCH MCHC RDW Plt Count Lymph % (Auto) [place] % (Auto) Eos % (Auto) Baso % (Auto) Lymph # (Auto) [place] # (Auto) Eos # (Auto) Baso # (Auto) Seg Neutrophils % Seg Neutrophils # Sodium Potassium Chloride Carbon Dioxide Anion Gap BUN Creatinine Estimated GFR BUN/Creatinine Ratio Glucose Calcium Urine Color Kelly Urine Turbidity Clear Urine pH 5.0 Ur Specific [place] 1.029 Urine Protein 30 mg/dl Urine Glucose (UA) Neg Urine Ketones 80 Urine Blood Neg Urine Nitrite Neg Urine Bilirubin Sm Urine Ictotest Negative Urine Urobilinogen 4.0 Ur Leukocyte Esterase Neg Urine WBC (Auto) 4.0 Urine RBC (Auto) 1.0 U Epithel Cells (Auto) < 1.0 Urine Bacteria (Auto) 1+ Urine Mucus 3+ Salicylates < 0.3 L Urine Opiates Screen Presumptive negative Urine Methadone Screen Presumptive negative Acetaminophen Ur Barbiturates Screen Presumptive negative Ur Phencyclidine Scrn Presumptive negative Ur Amphetamines Screen Presumptive negative U Benzodiazepines Scrn Presumptive negative Urine Cocaine Screen Presumptive negative U Marijuana (THC) Screen Presumptive negative Drugs of Abuse Note Disclamer Plasma/Serum Alcohol 05/15/21 05/15/21 05/15/21 03:56 03:56 03:56 WBC 9.0 RBC 4.52 Hgb 11.7 L Hct 35.4 L MCV 78 L MCH 26 L MCHC 33 RDW 18.4 H Plt Count 396 Lymph % (Auto) 31.1 [place] % (Auto) 6.2 Eos % (Auto) 4.3 Baso % (Auto) 0.6 Lymph # (Auto) 3.1 [place] # (Auto) 0.6 Eos # (Auto) 0.4 Baso # (Auto) 0.1 Seg Neutrophils % 57.8 Seg Neutrophils # 5.7 Sodium Potassium Chloride Carbon Dioxide Anion Gap BUN Creatinine Estimated GFR BUN/Creatinine Ratio Glucose Calcium Urine Color Urine Turbidity Urine pH Ur Specific [place] Urine Protein Urine Glucose (UA) Urine Ketones Urine Blood Urine Nitrite Urine Bilirubin Urine Ictotest Urine Urobilinogen Ur Leukocyte Esterase Urine WBC (Auto) Urine RBC (Auto) U Epithel Cells (Auto) Urine Bacteria (Auto) Urine Mucus Salicylates Urine Opiates Screen Urine Methadone Screen Acetaminophen 5.0 L Ur Barbiturates Screen Ur Phencyclidine Scrn Ur Amphetamines Screen U Benzodiazepines Scrn Urine Cocaine Screen U Marijuana (THC) Screen Drugs of Abuse Note Plasma/Serum Alcohol < 0.01 05/15/21 03:56 WBC RBC Hgb Hct MCV MCH MCHC RDW Plt Count Lymph % (Auto) [place] % (Auto) Eos % (Auto) Baso % (Auto) Lymph # (Auto) [place] # (Auto) Eos # (Auto) Baso # (Auto) Seg Neutrophils % Seg Neutrophils # Sodium 139 Potassium 4.5 Chloride 99.1 Carbon Dioxide 20 L Anion Gap 24 BUN 13 Creatinine 0.7 L Estimated GFR > 60 BUN/Creatinine Ratio 19 Glucose 67 L Calcium 9.7 Urine Color Urine Turbidity Urine pH Ur Specific [place] Urine Protein Urine Glucose (UA) Urine Ketones Urine Blood Urine Nitrite Urine Bilirubin Urine Ictotest Urine Urobilinogen Ur Leukocyte Esterase Urine WBC (Auto) Urine RBC (Auto) U Epithel Cells (Auto) Urine Bacteria (Auto) Urine Mucus Salicylates Urine Opiates Screen Urine Methadone Screen Acetaminophen Ur Barbiturates Screen Ur Phencyclidine Scrn Ur Amphetamines Screen U Benzodiazepines Scrn Urine Cocaine Screen U Marijuana (THC) Screen Drugs of Abuse Note Plasma/Serum Alcohol - Medical Decision Making This is a 31-year-old male with cognitive delay, depression and schizophrenia who presents with request for mental health evaluation. Patient appears calm. He is not responding to internal dialogue. He is cooperative. Awaiting treatment recommendations by psychiatric team. I have reviewed the labs obtained. CBC chemistry urinalysis serum toxicology screen all within acceptable limits. UDS negative. Critical care attestation.: If time is entered above; I have spent that time in minutes in the direct care of this critically ill patient, excluding procedure time. ED Disposition Clinical Impression: Hx of schizophrenia, Encounter for behavioral health screening, Encounter for medical screening examination Disposition: DC-01 TO HOME OR SELFCARE Is pt being admited?: No Does the pt Need Aspirin: No Condition: Good Additional Instructions: Please continue current outpatient medications. Please follow-up with your primary medical doctor within the next [address] Doyle Is a local primary care doctor. Please follow-up with outpatient mental health resources that have been provided to the patient. Please make certain to eat at least 3-6 times per day. Please have a primary care doctor contact medical records department to obtain copies of laboratory studies, and medical documentation, to follow-up on nonemergent incidental abnormal findings. Recommend that patient abstain from consumption of marijuana, tobacco, smoke products, and alcohol. Please return to the emergency room right away with new pain, worsened pain, migration of pain, projectile vomiting, change in mental status, confusion, inability to tolerate liquid feeds, new, worsened or different symptoms not present on the initial emergency room evaluation. Professional and Agency Contacts To help [facility](21/05) [place] Crisis Line: Suicide Prevention Line: Crisis Text Line: Text START to 090086 Emergency: 911 Outpatient COMMUNITY Behavioral Health Resources: JEREL: [facility] [address] [place], [place] [address] ASHLEY: [address] [address] [facility] - [address] [place] [address] Sunday thru Sunday - 8am - 5pm [facility] Address: [address] [address] [facility] Address: [address] [place] [address] Sunday thru Sunday- 7am-2pm [facility] Address: [address] [place] [address] Sunday thru Sunday: 8:30AM-5PM Referrals: [facility] [Outside] - 3-5 Days [facility] [Outside] - 3-5 Days VINH DOYLE MD [Staff Physician] - 3-5 Days
[2021-05-15] MEDS ORDERED: NEOMY 3.5 MG/BACIT 400 UNITS/POLY B 5000 UNITS/GM OINT PACKET TP ONE (12:47)
--- NOTE | 2021-05-16 09:09 | Consultation ---
History of Present Illness - Reason for Consult Consult date: 05/15/21 Reason for consult: SI - History of Present Psychiatric Illness Per ER note: HPI: This is a 31-year-old male with history of intellectual delay, depression, schizophrenia who presents with request for mental health evaluation. He gives limited history. However he denies suicidal ideation, homicidal ideation and auditory hallucinations. He told triage nurse that he had airplane parts inside of them. Patient presented via EMS. He denies any medical complaints. Antavious Head is a 31y/o male patient who came in for a mental health evaluation. During my evaluation the patient is difficult to follow and is a poor historian. He says he was brought in by police because they said he needed a mental health evaluation. The patient says "I don't know when asked about SI/HI. He also says "I don't know" when asked about hallucinations PAST PSYCHIATRIC HISTORY: Diagnoses: schizophrenia, depression Suicide attempts or Self-harm behavior: Yes Prior psychiatric hospitalizations: Yes Substance Abuse history: Denies Previous psychiatric medications tried: Denies Outpatient treatment: Denies PAST MEDICAL HISTORY: Denies Family Psychiatric History: None reported or documented SOCIAL HISTORY Unable to assess REVIEW OF SYSTEMS Constitutional: Negative for weight loss ENT: Negative for stridor Respiratory: Negative for cough or hemoptysis All other systems reviewed and are negative MENTAL STATUS EXAMINATION General Appearance and Behavior: Age appropriate, wearing appropriate clothes, cooperative polite with questioning, fair eye contact, cooperative, quiet Cooperation: cooperative Psychomotor Behavior: Psychomotor normal Mood: "okay" Affect and affective range: congruent with stated mood Thought Process: goal directed Thought Content: unable to assess Speech: Normal volume, Regular rate and rhythm Suicidal Ideation: "I don't know" Homicidal Ideation: "I don't know" hallucination: "I don't know" Delusions: None elicited Impulse Control: Limited Insight and Judgment: Limited Memory: Intact Attention: attentive, engaging Orientation: Alert and oriented Diagnoses: Hx of Schizophrenia Treatment Plan PSYCHOTHERAPY: Supportive psychotherapy provided MEDICAL: Per primary team DELIRIUM PRECAUTIONS: Please re-orient patient frequently, keep lights on during the day, and minimize benzodiazepines and opiates as these medications could worsen patient's confusion. AUDIO VISUAL AIDE: Per medical team DISPOSITION: Recommend acute psychiatric inpatient treatment will follow Thank you for the consult. Please contact with any questions and/or concerns. Case staffed with Dr. Abhinav Medications and Allergies Allergies Allergy/AdvReac Type Severity Reaction Status Date / Time No Known Allergies Allergy Verified 05/15/21 09:41 Home Medications Medication Instructions Recorded Confirmed Last Taken Type OLANzapine [ZyPREXA] 15 mg PO QDAY 10/11/13 06/08/17 01/16/14 History risperiDONE [Risperdal] 2 mg PO HS 01/17/14 06/08/17 Unknown History diphenhydrAMINE [Benadryl CAP] 25 mg PO Q8HR PRN #10 capsule 04/01/18 Unknown Rx Silver Sulfadiazine [Silvadene] 50 gm TP BID #1 cream..g. 03/20/21 Unknown Rx Mental Status Exam - Vital signs Last Vital Signs Temp 97.8 F 05/16/21 01:20 Pulse 65 05/16/21 01:20 Resp 16 05/16/21 01:20 BP 116/68 05/16/21 01:20 Pulse Ox 100 05/16/21 01:20 Results Result Diagrams: 05/15/21 03:56 05/15/21 03:56 All other labs normal.
--- NOTE | 2021-05-16 09:16 | Progress Note ---
Subjective - Reason for Consult Consult date: 05/16/21 Reason for consult: MHE - Chief Complaint Chief complaint: The patient is seen today. He is much more cooperative today. The patient says he's doing "fine." He says he slept good and his appetite is good. The patient denies SI/HI or hallucinations of any kind. He says "they asked me that yesterday." REVIEW OF SYSTEMS Constitutional: Negative for weight loss ENT: Negative for stridor Respiratory: Negative for cough or hemoptysis All other systems reviewed and are negative MENTAL STATUS EXAMINATION General Appearance and Behavior: Age appropriate, wearing appropriate clothes, cooperative polite with questioning, fair eye contact, cooperative, quiet Cooperation: cooperative Psychomotor Behavior: Psychomotor normal Mood: "fine" Affect and affective range: congruent with stated mood Thought Process: delayed Thought Content: unable to assess Speech: Normal volume, Regular rate and rhythm Suicidal Ideation: Denies Homicidal Ideation: Denies hallucination: Denies Delusions: None elicited Impulse Control: Limited Insight and Judgment: Limited Memory: Limited Attention: Limited Orientation: Alert and oriented Diagnoses: Hx of Schizophrenia Treatment Plan The patient to continue previously prescribed meds by outpatient PSYCHOTHERAPY: Supportive psychotherapy provided MEDICAL: Per primary team DELIRIUM PRECAUTIONS: Please re-orient patient frequently, keep lights on during the day, and minimize benzodiazepines and opiates as these medications could worsen patient's confusion. ASSOCIATE PROFESSOR OF BIOSTATISTICS: Per medical team DISPOSITION: Do not recommend acute psychiatric inpatient treatment. Explained to the patient that if SI/HI or any fear of endangerment are to arise he is to seek immediate assistance. The director of marketing google performance ads to give resources. will sign off. Thank you for the consult. Please contact with any questions and/or concerns. Case staffed with Dr. La Mental Status Exam - Vital signs Last Vital Signs Temp 97.8 F 05/16/21 01:20 Pulse 65 05/16/21 01:20 Resp 16 05/16/21 01:20 BP 116/68 05/16/21 01:20 Pulse Ox 100 05/16/21 01:20
[2021-05-16] MEDS ORDERED: DEXTROSE 50% IN WATER (25GM) 50 ML SYRINGE IV PRN (10:25)
--- NOTE | 2021-05-16 11:18 | Event Note ---
Date: 05/16/21 Initial ER documentation reviewed and appreciated, psychiatric documentation reviewed and appreciated, nursing team documentation reviewed and appreciated, laboratory studies, vital signs, are reviewed and appreciated. Patient resting comfortably on stretcher at this time, in no acute distress, denies physical pain, homicidality and suicidality. Initial glucoses reviewed and appreciated. The psychiatric team has recommended discharge from their perspective. Have requested that nursing team feed patient, and repeat Accu- Chek. Assuming unremarkable Accu-Chek, would consider this patient medically suitable for discharge. Patient awake, alert, oriented sober, and in no acute distress. Patient team reports no events overnight. Nursing team endorses no acute concerns. The patient himself is curious as to when he will be discharged. Otherwise, he has no acute complaints. 05/16/2021; 12: 25 PM. Repeat Accu-Chek 81. Patient in no acute distress. Outpatient discharge. Vital Signs 05/15/21 05/15/21 05/15/21 03:36 08:00 19:44 Temperature 98.2 F 98 F 97.5 F L Pulse Rate 64 62 69 Respiratory 18 20 18 Rate Blood Pressure 91/56 109/67 110/70 [Left] O2 Sat by Pulse 100 100 100 Oximetry 05/16/21 01:20 Temperature 97.8 F Pulse Rate 65 Respiratory 16 Rate Blood Pressure 116/68 [Left] O2 Sat by Pulse 100 Oximetry Lab Results 05/15/21 05/15/21 05/15/21 Range/Units 03:43 03:43 03:56 WBC (4.5-11.0) K/mm3 RBC (3.65-5.03) M/mm3 Hgb (11.8-15.2) gm/dl Hct (35.5-45.6) % MCV (84-94) fl MCH (28-32) pg MCHC (32-34) % RDW (13.2-15.2) % Plt Count (140-440) K/mm3 Lymph % (Auto) (13.4-35.0) % [place] % (Auto) (0.0-7.3) % Eos % (Auto) (0.0-4.3) % Baso % (Auto) (0.0-1.8) % Lymph # (Auto) (1.2-5.4) K/mm3 [place] # (Auto) (0.0-0.8) K/mm3 Eos # (Auto) (0.0-0.4) K/mm3 Baso # (Auto) (0.0-0.1) K/mm3 Seg Neutrophils % (40.0-70.0) % Seg Neutrophils # (1.8-7.7) K/mm3 Sodium (137-145) mmol/L Potassium (3.6-5.0) mmol/L Chloride (98-107) mmol/L Carbon Dioxide (22-30) mmol/L Anion Gap mmol/L BUN (9-20) mg/dL Creatinine (0.8-1.3) mg/dL Estimated GFR ml/min BUN/Creatinine Ratio % Glucose (75-100) mg/dL POC Glucose (70-105) mg/dL Calcium (8.4-10.2) mg/dL Urine Color Kelly (Yellow) Urine Turbidity Clear (Clear) Urine pH 5.0 (5.0-7.0) Ur Specific [place] 1.029 (1.003-1.030) Urine Protein 30 mg/dl (Negative) mg/dL Urine Glucose (UA) Neg (Negative) mg/dL Urine Ketones 80 (Negative) mg/dL Urine Blood Neg (Negative) Urine Nitrite Neg (Negative) Urine Bilirubin Sm (Negative) Urine Ictotest Negative (Negative) Urine Urobilinogen 4.0 (<2.0) mg/dL Ur Leukocyte Esterase Neg (Negative) Urine WBC (Auto) 4.0 (0.0-6.0) /HPF Urine RBC (Auto) 1.0 (0.0-6.0) /HPF U Epithel Cells (Auto) < 1.0 (0-13.0) /HPF Urine Bacteria (Auto) 1+ (Negative) /HPF Urine Mucus 3+ /HPF Salicylates < 0.3 L (2.8-20.0) mg/dL Urine Opiates Screen Presumptive negative Urine Methadone Screen Presumptive negative Acetaminophen (10.0-30.0) ug/mL Ur Barbiturates Screen Presumptive negative Ur Phencyclidine Scrn Presumptive negative Ur Amphetamines Screen Presumptive negative U Benzodiazepines Scrn Presumptive negative Urine Cocaine Screen Presumptive negative U Marijuana (THC) Screen Presumptive negative Drugs of Abuse Note Disclamer Plasma/Serum Alcohol (0-0.07) % Coronavirus (PCR) (Negative) 07/18/21 07/18/21 07/18/21 Range/Units 03:56 03:56 03:56 WBC 9.0 (4.5-11.0) K/mm3 RBC 4.52 (3.65-5.03) M/mm3 Hgb 11.7 L (11.8-15.2) gm/dl Hct 35.4 L (35.5-45.6) % MCV 78 L (84-94) fl MCH 26 L (28-32) pg MCHC 33 (32-34) % RDW 18.4 H (13.2-15.2) % Plt Count 396 (140-440) K/mm3 Lymph % (Auto) 31.1 (13.4-35.0) % [place] % (Auto) 6.2 (0.0-7.3) % Eos % (Auto) 4.3 (0.0-4.3) % Baso % (Auto) 0.6 (0.0-1.8) % Lymph # (Auto) 3.1 (1.2-5.4) K/mm3 [place] # (Auto) 0.6 (0.0-0.8) K/mm3 Eos # (Auto) 0.4 (0.0-0.4) K/mm3 Baso # (Auto) 0.1 (0.0-0.1) K/mm3 Seg Neutrophils % 57.8 (40.0-70.0) % Seg Neutrophils # 5.7 (1.8-7.7) K/mm3 Sodium (137-145) mmol/L Potassium (3.6-5.0) mmol/L Chloride (98-107) mmol/L Carbon Dioxide (22-30) mmol/L Anion Gap mmol/L BUN (9-20) mg/dL Creatinine (0.8-1.3) mg/dL Estimated GFR ml/min BUN/Creatinine Ratio % Glucose (75-100) mg/dL POC Glucose (70-105) mg/dL Calcium (8.4-10.2) mg/dL Urine Color (Yellow) Urine Turbidity (Clear) Urine pH (5.0-7.0) Ur Specific [place] (1.003-1.030) Urine Protein (Negative) mg/dL Urine Glucose (UA) (Negative) mg/dL Urine Ketones (Negative) mg/dL Urine Blood (Negative) Urine Nitrite (Negative) Urine Bilirubin (Negative) Urine Ictotest (Negative) Urine Urobilinogen (<2.0) mg/dL Ur Leukocyte Esterase (Negative) Urine WBC (Auto) (0.0-6.0) /HPF Urine RBC (Auto) (0.0-6.0) /HPF U Epithel Cells (Auto) (0-13.0) /HPF Urine Bacteria (Auto) (Negative) /HPF Urine Mucus /HPF Salicylates (2.8-20.0) mg/dL Urine Opiates Screen Urine Methadone Screen Acetaminophen 5.0 L (10.0-30.0) ug/mL Ur Barbiturates Screen Ur Phencyclidine Scrn Ur Amphetamines Screen U Benzodiazepines Scrn Urine Cocaine Screen U Marijuana (THC) Screen Drugs of Abuse Note Plasma/Serum Alcohol < 0.01 (0-0.07) % Coronavirus (PCR) (Negative) 05/15/21 05/15/21 05/16/21 Range/Units 03:56 10:23 11:01 WBC (4.5-11.0) K/mm3 RBC (3.65-5.03) M/mm3 Hgb (11.8-15.2) gm/dl Hct (35.5-45.6) % MCV (84-94) fl MCH (28-32) pg MCHC (32-34) % RDW (13.2-15.2) % Plt Count (140-440) K/mm3 Lymph % (Auto) (13.4-35.0) % [place] % (Auto) (0.0-7.3) % Eos % (Auto) (0.0-4.3) % Baso % (Auto) (0.0-1.8) % Lymph # (Auto) (1.2-5.4) K/mm3 [place] # (Auto) (0.0-0.8) K/mm3 Eos # (Auto) (0.0-0.4) K/mm3 Baso # (Auto) (0.0-0.1) K/mm3 Seg Neutrophils % (40.0-70.0) % Seg Neutrophils # (1.8-7.7) K/mm3 Sodium 139 (137-145) mmol/L Potassium 4.5 (3.6-5.0) mmol/L Chloride 99.1 (98-107) mmol/L Carbon Dioxide 20 L (22-30) mmol/L Anion Gap 24 mmol/L BUN 13 (9-20) mg/dL Creatinine 0.7 L (0.8-1.3) mg/dL Estimated GFR > 60 ml/min BUN/Creatinine Ratio 19 % Glucose 67 L (75-100) mg/dL POC Glucose 60 L (70-105) mg/dL Calcium 9.7 (8.4-10.2) mg/dL Urine Color (Yellow) Urine Turbidity (Clear) Urine pH (5.0-7.0) Ur Specific [place] (1.003-1.030) Urine Protein (Negative) mg/dL Urine Glucose (UA) (Negative) mg/dL Urine Ketones (Negative) mg/dL Urine Blood (Negative) Urine Nitrite (Negative) Urine Bilirubin (Negative) Urine Ictotest (Negative) Urine Urobilinogen (<2.0) mg/dL Ur Leukocyte Esterase (Negative) Urine WBC (Auto) (0.0-6.0) /HPF Urine RBC (Auto) (0.0-6.0) /HPF U Epithel Cells (Auto) (0-13.0) /HPF Urine Bacteria (Auto) (Negative) /HPF Urine Mucus /HPF Salicylates (2.8-20.0) mg/dL Urine Opiates Screen Urine Methadone Screen Acetaminophen (10.0-30.0) ug/mL Ur Barbiturates Screen Ur Phencyclidine Scrn Ur Amphetamines Screen U Benzodiazepines Scrn Urine Cocaine Screen U Marijuana (THC) Screen Drugs of Abuse Note Plasma/Serum Alcohol (0-0.07) % Coronavirus (PCR) Negative (Negative)
[2021-05-16 11:22] VITALS: BP 86/47
== END 2021-05-16 16:46 | disposition home or self-care (01) ==
LOC: ED 02:11
DX: F25.1 Schizoaffective disorder, depressive type (principal); I10 Essential (primary) hypertension; F17.200 Nicotine dependence, unspecified, uncomplicated; F12.90 Cannabis use, unspecified, uncomplicated; Z20.822 Contact with and (suspected) exposure to COVID-19; Z79.899 Other long term (current) drug therapy
CPT/HCPCS: 36415; 80048; 80307; 81001; 82962; 85025; 99285; A6250; U0003; 80320; G0480